=== PATIENT | female | born 1930 | race Caucasian/White ===

== ENCOUNTER 2020-04-27 10:21 | Emergency (ER) | payer MEDICARE, OTHER ==
[~2020-04-27] VITALS: Ht 165.1 cm; Wt 70.4 kg
[~2020-04-27 10:21] MED LIST: HYDR-1231 PO; THRYOID
[2020-04-27] MEDS ORDERED: ACETAMINOPHEN 500 MG TAB (TYLENOL) PO STA (11:19)
--- NOTE | 2020-04-27 11:53 | ED Fall/Injury ---
General Chief Complaint: Trauma-Non Activation Stated Complaint: BACK PAIN;FALL Nursing Triage Note: TO ED PER EMS PATIENT REPORTS THAT SHE FELL ON SUNDAY LANDING HER HER BACK. NO PAIN UNTILL SHE WALKS. PAIN IN LOW BACK. Source: patient Exam Limitations: no limitations History of Present Illness Date Seen by Provider: Apr 27, 2020 Time Seen by Provider: 11:13 Initial Comments Here with report of fall on her back 2 days ago. States fell and landed flat on her back. Denies loss of consciousness. Denies hitting her head. Denies hip or pelvic pain. Does complain of low back pain that is worse with movement and better with immobilization. She has taken an aspirin her to for the pain but otherwise nothing else. Otherwise pretty healthy and active. Denies dysuria or diarrhea. Denies fever or chills or upper respiratory symptoms. Denies contact with COVID-19 or sick contacts. Occurred: other (few days ago) Severity: moderate Injuries/Pain Location: back Context: lost balance Loss of Consciousness: no loss of consciousness Modifying Factors: Improves With Immobilization; Worse With Jarring, Worse With Movement Associated Symptoms (Fall): No Abdominal Pain, No Chest Pain, No Confusion, No Headache; Muscle Spasms; No Nausea/Vomiting, No Neck Pain, No Shortness of Air Allergies and Home Medications Allergies Coded Allergies: No Known Drug Allergies (Unverified , 01/20/14) Home Medications Hydrocodone Bit/Acetaminophen 1 Tab Tablet, 1 TAB PO Q4H PRN for PAIN Prescribed by: MARA RUIZ on 01/20/142056 Patient Home Medication List Home Medication List Reviewed: Yes Review of Systems Review of Systems Constitutional: see HPI; No chills, No fever Eyes: No Symptoms Reported Ears, Nose, Mouth, Throat: no symptoms reported Respiratory: no symptoms reported Cardiovascular: no symptoms reported Gastrointestinal: No abdominal pain, No nausea, No vomiting Genitourinary: No dysuria, No pain Musculoskeletal: back pain, muscle pain; No neck pain Skin: no symptoms reported All Other Systems Reviewed Negative Unless Noted: Yes Past Bjpvpil-Spuess-Hdqelj Hx Past Med/Social Hx: Reviewed Nursing Past Med/Soc Hx Patient Social History Alcohol Use: Occasionally Uses Recreational Drug Use: No Smoking Status: Never a Smoker Recent Foreign Travel: No Contact w/Someone Who Travel: No Recent Infectious Disease Expo: No Past Medical History Surgeries: Yes Respiratory: No Cardiac: No Neurological: No Reproductive Disorders: No Sexually Transmitted Disease: No Gastrointestinal: No Musculoskeletal: Yes Osteoporosis Endocrine: No Cancer: No Psychosocial: No Integumentary: No Blood Disorders: No Family Medical History Reviewed Nursing Family Hx No Pertinent Family Hx Physical Exam Vital Signs Vital Signs - First Documented 04/27/20 10:22 Temp 36.6 Pulse 80 Resp 18 B/P (MAP) 147/97 (114) Pulse Ox 94 O2 Delivery Room Air Capillary Refill : Less Than 3 Seconds Height, Weight, BMI Height: 5'1" Weight: 140lbs. oz. 63.790480xg; 25.00 BMI Method:Stated General Appearance: WD/WN, no apparent distress HEENT: PERRL/EOMI, pharynx normal Neck: non-tender, full range of motion, supple, normal inspection Cardiovascular: regular rate, rhythm, no murmur Respiratory: lungs clear, normal breath sounds Gastrointestinal: non tender, soft Back: No CVA tenderness (R), No CVA tenderness (L); decreased range of motion (secondary to pain), muscle spasm (bilateral lumbar), vertebral tenderness (mid lumbar spine) Extremities: normal range of motion, non-tender, normal inspection, no pedal edema, pelvis stable Neurologic/Psychiatric: alert, oriented x 3 Skin: normal color, warm/dry Nathaniel Coma Score Best Eye Response: (4) Open Spontaneously Best Verbal Response: (5) Oriented Best Motor Response: (6) Obeys Commands Progress/Results/Core Measures Results/Orders My Orders Orders - JOSIAH STEWART MD Ct Head Wo (04/27/20 11:19) Ct Lumbar Spine Wo (04/27/20 11:19) Acetaminophen Tablet (Tylenol Tablet) (04/27/20 11:19) Pelvis (04/27/20 11:19) Vital Signs/I&O 04/27/20 10:22 Temp 36.6 Pulse 80 Resp 18 B/P (MAP) 147/97 (114) Pulse Ox 94 O2 Delivery Room Air Blood Pressure Mean: 114 Progress Progress Note : Progress Note Seen and evaluated. CT of the head ordered due to age and history of fall. CT l umbar spine ordered due to low back pain after fall. X-ray pelvis ordered for same. Tylenol 1 g by mouth ordered. Monitor patient. 1234: CT results noted. Case discussed with Dr. Islas. We will do short prescription for hydrocodone. Discharged home with return precautions. Patient verbalize understanding instructions and agreement with plan. Diagnostic Imaging Diagonstic Imaging: CT Plain Films/CT/US/NM/MRI: other Comments [facility]. [place], [place] NAME: FRANCO CHRIS [facility] REC#: [id number] PT STATUS: REG ER : 1930 PHYSICIAN: JOSIAH STEWART MD ADMIT DATE: 04/27/20/ER Signed Date of Exam:04/27/20 CT LUMBAR SPINE WO PROCEDURE: CT lumbar spine without contrast. TECHNIQUE: Multiple contiguous axial images were obtained through the lumbar spine without the use of intravenous contrast. Sagittal and coronal reformations were then performed. Auto Exposure Controls were utilized during the CT exam to meet ALARA standards for radiation dose reduction. INDICATION: Fall. Low back pain. COMPARISON: Lumbar spine radiographs on 01/20/2014. FINDINGS: 5 lumbar type vertebral bodies are visualized with the last well-formed disc space designated L5-S1. Chronic 2 column fracture is visualized at the L1 vertebral body with approximately 3 mm of bony retropulsion and 60% height loss in the anterior aspect of the L1 vertebral body. The height loss has increased since the prior exam. No acute fracture is seen in the lumbar spine. 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 Grade 1 anterolisthesis of L3 on L4 is also seen. Multilevel degenerative changes are present in the lumbar spine with disc bulges, marginal osteophytes, and facet hypertrophy. These are most prominent at the T12-L1 and L5-S1 levels. No evidence of high density material seen within the spinal canal. The surrounding soft tissues of the lumbar spine demonstrate no acute abnormalities. The included pelvis is unremarkable without acute fracture or dislocation. The bilateral SI joints are well aligned. IMPRESSION: 1. No acute fracture or dislocation in the lumbar spine. 2. 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 There is a small amount of bony retropulsion at this level without significant spinal canal stenosis. 3. 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 Grade 1 anterolisthesis of L3 on L4 is also noted. Dictated by: Dictated on workstation # [id number] Dict: 04/27/20 1157 Trans: 04/27/201206 Interpreted by: CAROLINA SHOOK DO Electronically signed by: CAROLINA SHOOK DO 04/27/201206 Diagonstic Imaging: CT Plain Films/CT/US/NM/MRI: head Comments [facility] [place] NAME: FRANCO CHRIS [facility] REC#: [id number] PT STATUS: REG ER : 1930 PHYSICIAN: JOSIAH STEWART MD ADMIT DATE: 04/27/20/ER Signed Date of Exam:04/27/20 CT HEAD WO EXAMINATION: CT head without contrast. TECHNIQUE: Multiple contiguous axial images were obtained through the brain without the use of intravenous contrast. All CT scans use one or more of the following dose optimizing techniques: automated exposure control, MA and/or KvP adjustment based on a patient size and exam type, or iterative reconstruction. HISTORY: Fall from standing. Hit the back of the head. Scalp contusion. COMPARISON: None available. FINDINGS: No large acute territorial ischemia, mass, or hemorrhage. No midline shift or mass effect. 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 Decreased attenuation is seen in the periventricular and subcortical white matter. The ventricles and cortical sulci are prominent. The basilar cisterns are patent and unremarkable. The orbits are normal. Paranasal sinuses are normal. Mastoid air cells are clear. No soft tissue abnormality is seen. No osseus lesions or fractures are seen. IMPRESSION: 1. No large acute territorial ischemia, mass, or hemorrhage. 2. Chronic microvascular disease. 3. Generalized parenchymal volume loss. Dictated by: Dictated on workstation # [id number] Dict: 04/27/20 1155 Trans: 04/27/201200 [id number] Interpreted by: CAROLINA SHOOK DO Electronically signed by: CAROLINA SHOOK DO 04/27/201200 Diagonstic Imaging: Xray Plain Films/CT/US/NM/MRI: pelvis Comments [facility] [place] [place] NAME: FRANCO CHRIS [facility] REC#: [id number] PT STATUS: REG ER : 1930 PHYSICIAN: JOSIAH STEWART MD ADMIT DATE: 04/27/20/ER Draft Date of Exam:04/27/20 PELVIS INDICATION: Fall from standing position. FINDINGS: AP pelvis. SI joints and pubic symphysis are in good alignment. There are no fractures of the pelvis. The femoral heads are in normal articulation bilaterally. Moderate degenerative changes are noted of the hips and SI joint. IMPRESSION: Moderate degenerative changes with no acute abnormalities demonstrated. Dictated on workstation # [id number] Dict: 04/27/20 1200 Trans: 04/27/20 1204 [facility] [phone] Interpreted by: BETH ALLEN MD Electronically signed by: Departure Impression Primary Impression: Low back pain Qualified Codes: M54.5 - Low back pain Disposition: 01 HOME, SELF-CARE Condition: Stable Departure-Patient Inst. Decision time for Depature: 12:34 Referrals: FAVIAN ISLAS MD (PCP/Family) Primary Care Physician Patient Instructions: Low Back Pain (DC), Vertebral Compression Fracture (DC) Add. Discharge Instructions: All discharge instructions reviewed with patient and/or family. Voiced understanding. Take medications as directed. Follow-up with your DrHomero in a few days for recheck. Call his office for appointment. Be careful with the prescribed pain medicine as this may cause drowsiness and constipation. Drink plenty of fluids. If you are not taking the prescribed pain medicine, you may take Tylenol/acetaminophen per package directions do not take both at the same time as they both have Tylenol/acetaminophen in them. Return for worse pain, weakness, difficulty with walking or going to the bathroom, numbness between your legs or other concerns as needed. Scripts Hydrocodone/Acetaminophen (Hydrocodone/Acetaminophen 5 MG/325 MG TAB) 1 Each Tablet 1 TAB PO Q6H PRN for PAIN-MODERATE (5-7) MDD 10 TABS for 7 Days, #12 TAB 0 Refills Prov: JOSIAH STEWART MD 04/27/20 Copy Copies To 1: FAVIAN ISLAS MD, TIMOTHY D MD Apr 27, 2020 11:53
--- NOTE | 2020-04-27 11:59 | Diagnostic Imaging Report ---
EXAMINATION: CT head without contrast. TECHNIQUE: Multiple contiguous axial images were obtained through the brain without the use of intravenous contrast. All CT scans use one or more of the following dose optimizing techniques: automated exposure control, MA and/or KvP adjustment based on a patient size and exam type, or iterative reconstruction. HISTORY: Fall from standing. Hit the back of the head. Scalp contusion. COMPARISON: None available. FINDINGS: No large acute territorial ischemia, mass, or hemorrhage. No midline shift or mass effect. 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 Decreased attenuation is seen in the periventricular and subcortical white matter. The ventricles and cortical sulci are prominent. The basilar cisterns are patent and unremarkable. The orbits are normal. Paranasal sinuses are normal. Mastoid air cells are clear. No soft tissue abnormality is seen. No osseus lesions or fractures are seen. IMPRESSION: 1. No large acute territorial ischemia, mass, or hemorrhage. 2. Chronic microvascular disease. 3. Generalized parenchymal volume loss. Dictated by: Dictated on workstation # [id number]
--- NOTE | 2020-04-27 12:04 | Diagnostic Imaging Report ---
PROCEDURE: CT lumbar spine without contrast. TECHNIQUE: Multiple contiguous axial images were obtained through the lumbar spine without the use of intravenous contrast. Sagittal and coronal reformations were then performed. Auto Exposure Controls were utilized during the CT exam to meet ALARA standards for radiation dose reduction. INDICATION: Fall. Low back pain. COMPARISON: Lumbar spine radiographs on 01/20/2014. FINDINGS: 5 lumbar type vertebral bodies are visualized with the last well-formed disc space designated L5-S1. Chronic 2 column fracture is visualized at the L1 vertebral body with approximately 3 mm of bony retropulsion and 60% height loss in the anterior aspect of the L1 vertebral body. The height loss has increased since the prior exam. No acute fracture is seen in the lumbar spine. 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 Grade 1 anterolisthesis of L3 on L4 is also seen. Multilevel degenerative changes are present in the lumbar spine with disc bulges, marginal osteophytes, and facet hypertrophy. These are most prominent at the T12-L1 and L5-S1 levels. No evidence of high density material seen within the spinal canal. The surrounding soft tissues of the lumbar spine demonstrate no acute abnormalities. The included pelvis is unremarkable without acute fracture or dislocation. The bilateral SI joints are well aligned. IMPRESSION: 1. No acute fracture or dislocation in the lumbar spine. 2. 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 There is a small amount of bony retropulsion at this level without significant spinal canal stenosis. 3. 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 Grade 1 anterolisthesis of L3 on L4 is also noted. Dictated by: Dictated on workstation # [id number]
--- NOTE | 2020-04-27 12:04 | Diagnostic Imaging Report ---
INDICATION: Fall from standing position. FINDINGS: AP pelvis. SI joints and pubic symphysis are in good alignment. There are no fractures of the pelvis. The femoral heads are in normal articulation bilaterally. Moderate degenerative changes are noted of the hips and SI joint. IMPRESSION: Moderate degenerative changes with no acute abnormalities demonstrated. Dictated by: Dictated on workstation # [id number]
--- OUTSIDE RECORDS SUMMARY | 2020-04-27 12:15 | XMS REPORT | Continuity of Care Document ---
Author Organization Unknown Address Unknown Phone Unavailable Allergies Active Description Code Type Severity Reaction Onset Reported/Identified Relationship to Patient Clinical Status Yes No Known Drug Allergies [id number] Drug Allergy Unknown N/A 01/20/2014 Medications There is no data. Problems Date Dx Coded Attending Type Code Diagnosis Diagnosed By 02/07/2016 FAVIAN LUX MD Ot R06. 00 DYSPNEA, UNSPECIFIED 02/24/2016 FAVIAN LUX MD Ot R06. 00 DYSPNEA, UNSPECIFIED Procedures There is no data. Results There is no data. Encounters ACCT No. Visit Date/Time Discharge Status Pt. Type Provider Facility Loc./Unit Complaint [id number] 02/04/2016 16:29:00 016 23:59:59 CLS Outpatient FAVIAN LUX MD [facility] RT [id number] 01/20/2014 19:56:00 014 21:04:00 DIS Emergency
[2020-04-27] MEDS ORDERED: HYDR-4226 PO (12:32)
--- NOTE | 2020-04-27 12:46 | NUR ---
FAMILY MEMBRS HAVE CALLD TO CHECK ON PATIENT UPDATES GIVEN.
[2020-04-27 12:55] VITALS: BP 152/80
== END 2020-04-27 12:59 | disposition home or self-care (01) ==
LOC: EDUNIT# 10:21 → ER 10:22
DX: M54.5 Low back pain (principal); W19.XXXA Unspecified fall, initial encounter; M81.0 Age-related osteoporosis without current pathological fracture
CPT/HCPCS: 70450; 72131; 72170